=== PATIENT | female | born 1950 | race Caucasian/White ===

== ENCOUNTER 2017-04-18 19:33 | Emergency (ER) | payer MEDICARE ==
[~2017-04-18] VITALS: Ht 157.5 cm; Wt 95.1 kg
[~2017-04-18 19:33] MED LIST: GLUCTAB PO; HYDR-3111 PO; HYDR12.56 PO; HYDR12.57 PO; LEVO.025 PO; LORA0.5T PO; METF500T PO; VENL75TA PO; VERA80TA PO; ZOLP5TAB3 PO
[2017-04-18 19:42] VITALS: BP 137/80; PULSE 87; RESP 18; TEMP 98.1; O2SAT 97
[2017-04-18] MEDS ORDERED: LEVO25TA4 PO (19:53)
[2017-04-18] MEDS ORDERED: MELO15TA20 PO (20:12)
[2017-04-18] MEDS ORDERED: HYDR25TA5 PO (20:12)
[2017-04-18] MEDS ORDERED: EMPA1TAB3 PO (20:12)
[2017-04-18] MEDS ORDERED: ORPHENADRINE INJ 60 MG/2 ML AMP IM ONE (20:30)
[2017-04-18] MEDS ORDERED: KETOROLAC TROMETHAMINE 60 MG/2 ML (IM) VIAL IM ONE (20:30)
[2017-04-18] MEDS ORDERED: CYCL5TAB PO (20:39)
[2017-04-18] MEDS ORDERED: MEDI220T PO (20:39)
--- NOTE | 2017-04-18 20:40 | PD ---
HPI . Sciatica Chief Complaint: Musculoskeletal Complaint Time Seen by Provider: 20:00 Travel History International Travel<30 days: No Contact w/Intl Traveler<30days: No Traveled to known affect area: No History of Present Illness HPI 67-year-old female presents emergency department for evaluation of left hip pain that radiates down the left leg. Patient denies any injuries, traumas or fall to the area. Patient states the pain has been persistent for a week and half. Patient states that she was moving and lifting heavy boxes prior to the pain. Patient is full range of motion of the left hip. There is no obvious deformity, ecchymosis or erythema. Patient is ambulatory without a limp. Left leg is neurovascularly intact. Patient denies any fever, chills, malaise, shortness breath, abdominal pain, nausea, vomiting, diarrhea. Patient's major medical history is hypertension, diabetes and hypothyroidism. Patient denies any incontinence of urine or stool or saddle numbness. She denies any IV drug use. PFSH Past Medical History Anemia: Yes (DURING ) Arthritis: Yes (BILATERAL KNEES, HIPS, BACK AND HANDS) Asthma: Yes (PT STATES " SELDOM SYMPTOMATIC") Autoimmune Disease: No Anxiety: Yes Depression: Yes Cancer: No Cardiovascular Problems: No Diabetes: Yes Patient Takes Glucophage: No Diminished Hearing: No Gastrointestinal Disorders: Yes (VENTRAL HERNIA) Genitourinary: No Hepatitis: No Hiatal Hernia: No Hypertension: Yes Immune Disorder: No Medical other: Yes (HX ULCERS, MACULAR DEGENERATION) Musculoskeletal: Yes Neurologic: No Psychiatric: Yes Reproductive: Yes (POST MENOPAUSAL BLEEDING) Respiratory: Yes (SLEEP APNEA, PT DOES NOT USE CPAP MACHINE) Sleep Apnea: Yes (NO CPAP) Thyroid Disease: Yes Tetanus Vaccination: > 5 Years Influenza Vaccination: Yes Menopausal: Yes : 1 Para: 1 Ovarian Cysts: Yes Past Surgical History Abdominal Surgery: Yes (COLECTOMY, COLOSTOMY, REVERSAL OF COLOSTOMY 2002) Eye Surgery: Yes (right cataract) Joint Replacement: No Oral Surgery: Yes (TEETH AND GUM) Pacemaker: No Other Surgery: Yes (hernia) Social History Alcohol Use: Yes (socially) Tobacco Use: Yes (06/06 ppd) Substance Use: No Allergies-Medications (Allergen,Severity, Reaction): Coded Allergies: acetaminophen (Unverified Allergy, Severe, VOMITING , 04/18/17) ciprofloxacin (Unverified Allergy, Severe, VOMITING , 04/18/17) codeine (Unverified Allergy, Severe, VOMITTING ITCHING , 04/18/17) dextromethorphan (Unverified Allergy, Severe, 04/18/17) erythromycin base (Unverified Allergy, Severe, ITCHING , 04/18/17) morphine (Unverified Allergy, Severe, ITCHING , 04/18/17) oxycodone (Verified Allergy, Severe, VOMITING, 04/18/17) amlodipine (Unverified Allergy, Mild, NUMBNESS/TINGLING IN FACE, 04/18/17) Reported Meds & Prescriptions Reported Meds & Active Scripts Active Metformin (Metformin HCl) 500 Mg Tab 500 Mg PO BIDPC Lorazepam 0.5 Mg Tab 0.5 Mg PO DAILY PRN Zolpidem (Zolpidem Tartrate) 5 Mg Tab 5 Mg PO HS PRN Reported Jardiance (Empagliflozin) 25 Mg Tab 25 Mg PO DAILY Meloxicam 15 Mg Tab 15 Mg PO DAILY Hydrochlorothiazide 25 Mg Tab 25 Mg PO BID Levothyroxine (Levothyroxine Sodium) 25 Mcg Tab 25 Mcg PO DAILY Verapamil (Verapamil HCl) 80 Mg Tab 80 Mg PO DAILY Effexor (Venlafaxine HCl) 75 Mg Tab 150 Mg PO DAILY Review of Systems Except as stated in HPI: all other systems reviewed are Neg Musculoskeletal: Positive: Pain (left hip/left leg) Physical Exam Narrative GENERAL: Well-nourished, well-developed obese 67-year-old female patient in no acute distress. Nontoxic appearing. SKIN: Focused skin assessment warm/dry. HEAD: Normocephalic. Atraumatic. EYES: No scleral icterus. No injection or drainage. NECK: Supple, trachea midline. No JVD or lymphadenopathy. CARDIOVASCULAR: Regular rate and rhythm without murmurs, gallops, or rubs. Pedal pulses +2 bilaterally. RESPIRATORY: Breath sounds equal bilaterally. No accessory muscle use. GASTROINTESTINAL: Abdomen soft, non-tender, nondistended. MUSCULOSKELETAL: Full range of motion of the left lower extremity No obvious deformity, ecchymosis, erythema cyanosis, or edema. BACK: Nontender without obvious deformity. No CVA tenderness. Data Data Last Documented VS Vital Signs Date Time Temp Pulse Resp B/P (MAP) Pulse Ox O2 Delivery O2 Flow Rate FiO2 04/18/17 19:42 98.1 87 18 137/80 (99) 97 Orders Orders Ketorolac Inj (Toradol Inj) (04/18/17 20:30) Orphenadrine Inj (Norflex Inj) (04/18/17 20:30) MDM Medical Decision Making Medical Screen Exam Complete: Yes Emergency Medical Condition: Yes Differential Diagnosis Differential diagnoses include but not limited to sciatica, contusion, sprain, strain Narrative Course 67-year-old female who this emergency room for evaluation of left hip pain that radiates down the left leg 2 weeks. Left leg is neurovascularly intact. Patient's range of motion. There is no obvious deformity, ecchymosis, cyanosis , erythema, edema noted. Patient is ambulatory without a limp. Patient denies any fever, chills, malaise. Due to the lack of any trauma and duration of symptoms and physical presentation and clinical appearance radiological imaging was deferred at this time. Patient treated with an IM injection of Norflex and Toradol and discharged home with a prescription for Flexeril and naproxen and instructions to follow up with her primary care return to the emergency Department with any worsening condition. Diagnosis Primary Impression: Radiculopathy of leg Referrals: Primary Care Physician Patient Instructions: General Instructions, Sciatica (ED) Additional Instructions: Please return to emergency department if your symptoms return or worsen. Follow up with your primary care provider. Take medications as prescribed. Med/Other Pt SpecificInfo: Prescription(s) given Scripts Naproxen Sodium (Naproxen Sodium) 220 Mg Tab 440 MG PO BID Y for Pain Management, #15 TAB 0 Refills Prov: Tracy Gabriel 04/18/17 Cyclobenzaprine (Flexeril) 5 Mg Tab 5 MG PO TID for Muscle Spasm, #20 TAB 0 Refills Prov: Tracy Gabriel 04/18/17 Disposition: 01 DISCHARGE HOME Condition: Stable Tracy Gabriel Apr 18, 2017 20:40
[2017-05-02] MEDS ORDERED: HYDR25TA5 PO (15:09)
[2017-05-02] MEDS ORDERED: ZOLP5TAB3 PO (15:09)
[2017-05-02] MEDS ORDERED: METF500T PO (15:09)
[2017-05-02] MEDS ORDERED: PNEU13P IM ×2 (15:41→15:53)
[2017-05-02] MEDS ORDERED: FLU45SYR IM (15:41)
[2017-05-02] MEDS ORDERED: FLU60SYR19 IM (15:53)
== END 2017-04-18 20:56 | disposition home or self-care (01) ==
LOC: PHEFT 19:33
DX: M54.10 Radiculopathy, site unspecified (principal)
CPT/HCPCS: 96372; 99283; J1885; J2360

== ENCOUNTER 2017-10-13 23:35 | Emergency (ER) | payer MEDICARE ==
[~2017-10-13] VITALS: Ht 154.9 cm; Wt 93.0 kg
[~2017-10-13 23:35] MED LIST changes: +CLOTCRE TOPICAL; +EMPA1TAB3 PO; +FLU45SYR IM; -GLUCTAB PO; -HYDR-3111 PO; +HYDR-3516 PO; -HYDR12.56 PO; -HYDR12.57 PO; +HYDR25TA5 PO; -LEVO.025 PO; +LEVO25TA4 PO; +MEDI220T PO; +MELO15TA20 PO; +PNEU13P IM; +VENL150C39 PO; -VENL75TA PO; +VERA1TAB10 PO; -VERA80TA PO
[2017-10-13 23:38] VITALS: BP 170/80; PULSE 85; RESP 18; TEMP 97.8; O2SAT 99
[2017-10-14] MEDS ORDERED: SODIUM CHLOR 0.9% 1000 ML INJ 1,000 ML IV SCH (00:07)
[2017-10-14] MEDS ORDERED: ONDANSETRON ODT 4 MG TAB PO ONE (00:15)
[2017-10-14] MEDS ORDERED: SODIUM CHLORIDE 0.9% FLUSH 10 ML FLUSH IV FLUSH PRN (00:15)
[2017-10-14 00:32] VITALS: RESP 18; O2SAT 96
[2017-10-14 00:38] LABS: AUTOMATED NEUTROPHIL # 8.1 TH/MM3 (1.8-7.7); BASOPHIL # 0.1 TH/MM3 (0-0.2); BASOPHIL % 0.7 % (0.0-2.0); EOSINOPHIL # 0.1 TH/MM3 (0-0.4); EOSINOPHIL % 1.2 % (0.0-4.0); HEMATOCRIT 43.2 % (35.0-46.0); HEMOGLOBIN 14.8 GM/DL (11.6-15.3); LYMPH % 17.4 % (9.0-44.0); LYMPHOCYTE # 1.9 TH/MM3 (1.0-4.8); MEAN CELL VOLUME 93.3 FL (80.0-100.0); MEAN CORPUSCULAR HEMOGLOBIN 31.9 PG (27.0-34.0); MEAN CORPUSCULAR HGB CONC 34.2 % (32.0-36.0); MEAN PLATELET VOLUME 8.6 FL (7.0-11.0); MONO % 7.8 % (0.0-8.0); MONOCYTE # 0.9 TH/MM3 (0-0.9); NEUT % 72.9 % (16.0-70.0); PLATELET COUNT 286 TH/MM3 (150-450); RED BLOOD COUNT 4.64 MIL/MM3 (4.00-5.30); RED CELL DISTRIBUTION WIDTH 14.9 % (11.6-17.2); WHITE BLOOD COUNT 11.1 TH/MM3 (4.0-11.0)
[2017-10-14 00:50] LABS: ALT (GPT) 34 U/L (10-53); AST (GOT) 19 U/L (15-37); BICARBONATE 27.7 MEQ/L (21.0-32.0); BLOOD UREA NITROGEN 18 MG/DL (7-18); CALCIUM 9.4 MG/DL (8.5-10.1); CHLORIDE 102 MEQ/L (98-107); CREATININE 0.96 MG/DL (0.50-1.00); GLOMERULAR FILTRATION RATE 58 ML/MIN (>89); GLUCOSE,RANDOM 199 MG/DL (74-106); SODIUM (NA) 140 MEQ/L (136-145)
[2017-10-14 00:52] LABS: ALKALINE PHOSPHATASE 70 U/L (45-117); TOTAL BILIRUBIN ADULT 0.4 MG/DL (0.2-1.0)
[2017-10-14] MEDS ORDERED: ZOFR4TAB3 SL (00:56)
--- NOTE | 2017-10-14 00:56 | PD ---
HPI Chief Complaint: Abdominal Pain Time Seen by Provider: 00:07 Travel History International Travel<30 days: No Contact w/Intl Traveler<30days: No Traveled to known affect area: No History of Present Illness HPI 67-year-old complains of generalized abdominal pain though worse in the epigastric and right upper quadrant. A crampy quality is reported. It is luis felipe to a labor-like pain. Pain radiates to the back. Has a labor pain tight quality. It comes and goes. Nausea is reported. There is no fever vomiting or diarrhea. Pain started after eating [employer]. No urinary complaints PFSH Past Medical History Anemia: Yes (DURING ) Arthritis: Yes (BILATERAL KNEES, HIPS, BACK AND HANDS) Asthma: Yes (PT STATES " SELDOM SYMPTOMATIC") Autoimmune Disease: No Anxiety: Yes Depression: Yes Cancer: No Cardiovascular Problems: No Diabetes: Yes Patient Takes Glucophage: Yes (10/13/2017 1000) Diminished Hearing: No Gastrointestinal Disorders: Yes (VENTRAL HERNIA) Genitourinary: No Hepatitis: No Hiatal Hernia: No Hypertension: Yes Immune Disorder: No Medical other: Yes (HX ULCERS) Musculoskeletal: Yes Neurologic: No Psychiatric: Yes Reproductive: Yes (POST MENOPAUSAL BLEEDING) Respiratory: Yes (SLEEP APNEA, PT DOES NOT USE CPAP MACHINE) Sleep Apnea: Yes (NO CPAP) Thyroid Disease: Yes Tetanus Vaccination: Unknown Influenza Vaccination: No ?: Not Menopausal: Yes : 1 Para: 1 Ovarian Cysts: Yes Past Surgical History Abdominal Surgery: Yes (COLECTOMY, COLOSTOMY, REVERSAL OF COLOSTOMY 2002) Eye Surgery: Yes (right cataract) Hysterectomy: Yes Joint Replacement: No Oral Surgery: Yes (TEETH AND GUM) Pacemaker: No Other Surgery: Yes (hernia) Social History Alcohol Use: Yes (socially) Tobacco Use: Yes (06/06 ppd) Substance Use: No Allergies-Medications (Allergen,Severity, Reaction): Coded Allergies: ciprofloxacin (Unverified Allergy, Severe, VOMITING , 10/13/17) codeine (Unverified Allergy, Severe, VOMITTING ITCHING , 10/13/17) dextromethorphan (Unverified Allergy, Severe, 10/13/17) erythromycin base (Unverified Allergy, Severe, ITCHING , 10/13/17) morphine (Unverified Allergy, Severe, ITCHING , 10/13/17) oxycodone (Verified Allergy, Severe, VOMITING, 10/13/17) amlodipine (Unverified Allergy, Mild, NUMBNESS/TINGLING IN FACE, 10/13/17) Reported Meds & Prescriptions Reported Meds & Active Scripts Active Zofran Odt (Ondansetron Odt) 4 Mg Tab 4 Mg SL Q8HR PRN Levothyroxine (Levothyroxine Sodium) 25 Mcg Tab 25 Mcg PO DAILY Zolpidem (Zolpidem Tartrate) 5 Mg Tab 5 Mg PO HS PRN Hydrochlorothiazide 25 Mg Tab 25 Mg PO DAILY Venlafaxine ER 24 HR (Venlafaxine HCl) 150 Mg Cap 150 Mg PO DAILY PRN 30 Days Verapamil ER (Verapamil HCl) 180 Mg Tab 180 Mg PO DAILY Metformin (Metformin HCl) 500 Mg Tab 500 Mg PO BIDPC Lorazepam 0.5 Mg Tab 0.5 Mg PO DAILY PRN Reported Jardiance (Empagliflozin) 25 Mg Tab 25 Mg PO DAILY Meloxicam 15 Mg Tab 15 Mg PO DAILY Review of Systems Except as stated in HPI: all other systems reviewed are Neg General / Constitutional: No: Fever Physical Exam Narrative GENERAL: 67-year-old female pleasant well-nourished well-developed Vital Signs Date Time Temp Pulse Resp B/P (MAP) Pulse Ox O2 Delivery O2 Flow Rate FiO2 10/14/17 00:32 18 96 Room Air 10/13/17 23:38 97.8 85 18 170/80 (110) 99 SKIN: Warm and dry. HEAD: Atraumatic. Normocephalic. EYES: Pupils equal and round. No scleral icterus. No injection or drainage. ENT: No nasal bleeding or discharge. Mucous membranes pink and moist. NECK: Trachea midline. No JVD. CARDIOVASCULAR: Regular rate and rhythm. RESPIRATORY: No accessory muscle use. Clear to auscultation. Breath sounds equal bilaterally. GASTROINTESTINAL: Abdomen soft, non-tender, nondistended. Hepatic and splenic margins not palpable. MUSCULOSKELETAL: Extremities without clubbing, cyanosis, or edema. No obvious deformities. NEUROLOGICAL: Awake and alert. No obvious cranial nerve deficits. Motor grossly within normal limits. Five out of 5 muscle strength in the arms and legs. Normal speech. PSYCHIATRIC: Appropriate mood and affect; insight and judgment normal. Data Data Last Documented VS Vital Signs Date Time Temp Pulse Resp B/P (MAP) Pulse Ox O2 Delivery O2 Flow Rate FiO2 10/14/17 02:21 80 18 151/83 (105) 97 Room Air 10/13/17 23:38 97.8 Orders Orders Complete Blood Count With Diff (10/14/17 00:07) Comprehensive Metabolic Panel (10/14/17 00:07) Lipase (10/14/17 00:07) Lactic Acid (10/14/17 00:07) Urinalysis - C+S If Indicated (10/14/17 00:07) Ct Abd/Pel W Iv Contrast(Rout) (10/14/17 00:07) Iv Access Insert/Monitor (10/14/17 00:07) Ecg Monitoring (10/14/17 00:07) Oximetry (10/14/17 00:07) Sodium Chlor 0.9% 1000 Ml Inj (Ns 1000 M (10/14/17 00:07) Sodium Chloride 0.9% Flush (Ns Flush) (10/14/17 00:15) Ondansetron Odt (Zofran Odt) (10/14/17 00:15) Iohexol 350 Inj (Omnipaque 350 Inj) (10/14/17 01:48) Ed Discharge Order (10/14/17 03:58) Ed Discharge Order (10/14/17 03:58) Labs Laboratory Tests Test 10/14/17 00:13 10/14/17 01:45 White Blood Count 11.1 TH/MM3 Red Blood Count 4.64 MIL/MM3 Hemoglobin 14.8 GM/DL Hematocrit 43.2 % Mean Corpuscular Volume 93.3 FL Mean Corpuscular Hemoglobin 31.9 PG Mean Corpuscular Hemoglobin Concent 34.2 % Red Cell Distribution Width 14.9 % Platelet Count 286 TH/MM3 Mean Platelet Volume 8.6 FL Neutrophils (%) (Auto) 72.9 % Lymphocytes (%) (Auto) 17.4 % Monocytes (%) (Auto) 7.8 % Eosinophils (%) (Auto) 1.2 % Basophils (%) (Auto) 0.7 % Neutrophils # (Auto) 8.1 TH/MM3 Lymphocytes # (Auto) 1.9 TH/MM3 Monocytes # (Auto) 0.9 TH/MM3 Eosinophils # (Auto) 0.1 TH/MM3 Basophils # (Auto) 0.1 TH/MM3 CBC Comment DIFF FINAL Differential Comment Blood Urea Nitrogen 18 MG/DL Creatinine 0.96 MG/DL Random Glucose 199 MG/DL Total Protein 8.0 GM/DL Albumin 4.0 GM/DL Calcium Level 9.4 MG/DL Alkaline Phosphatase 70 U/L Aspartate Amino Transf (AST/SGOT) 19 U/L Alanine Aminotransferase (ALT/SGPT) 34 U/L Total Bilirubin 0.4 MG/DL Sodium Level 140 MEQ/L Potassium Level 3.2 MEQ/L Chloride Level 102 MEQ/L Carbon Dioxide Level 27.7 MEQ/L Anion Gap 10 MEQ/L Estimat Glomerular Filtration Rate 58 ML/MIN Lactic Acid Level 1.9 mmol/L Lipase 165 U/L Urine Color YELLOW Urine Turbidity CLEAR Urine pH 5.5 Urine Specific [place] 1.035 Urine Protein NEG mg/dL Urine Glucose (UA) 1000 mg/dL Urine Ketones NEG mg/dL Urine Occult Blood NEG Urine Nitrite NEG Urine Bilirubin NEG Urine Urobilinogen LESS THAN 2.0 MG/DL Urine Leukocyte Esterase NEG Urine RBC 1 /hpf Urine WBC 7 /hpf Urine Squamous Epithelial Cells 6 /hpf Urine Hyaline Casts 2 /lpf Urine Mucus FEW /lpf Microscopic Urinalysis Comment CULT NOT INDICATED MDM Medical Decision Making Medical Screen Exam Complete: Yes Emergency Medical Condition: Yes Medical Record Reviewed: Yes Differential Diagnosis Gastritis, pancreatitis, appendicitis, acute cholecystitis, ascending cholangitis, AAA, perforated viscous, mesenteric ischemia, hepatitis, cystitis, hydronephrosis/hydroureter/nephroureter calculus, mesenteric adenitis, biliary colic Narrative Course CBC & BMP Diagram 10/14/17 00:13 Total Protein 8.0, Albumin 4.0, Calcium Level 9.4, Alkaline Phosphatase 70, Aspartate Amino Transf (AST/SGOT) 19, Alanine Aminotransferase (ALT/SGPT) 34, Total Bilirubin 0.4 Lactic acid is 1.9 CT reveals partial bowel obstruction as a possibility diagnostically however certainly far from definitive based on imaging alone. The patient was kept here for about 5 hours. She drinks about 12 ounces of Gatorade and experienced no nausea or vomiting. Patient also reports improved abdominal pain. Positive flatus reported at approximately 3:30 AM. In this scenario patient will be discharged home with Zofran. Motrin as needed for pain control. Strict return precautions were discussed and patient verbalized understanding. Diagnosis Primary Impression: Abdominal pain Qualified Codes: R10.9 - Unspecified abdominal pain Additional Impressions: Vomiting Qualified Codes: R11.10 - Vomiting, unspecified Hypokalemia Referrals: Primary Care Physician call for appointment Med/Other Pt SpecificInfo: Prescription(s) given Scripts Ondansetron Odt (Zofran Odt) 4 Mg Tab 4 MG SL Q8HR Y for Nausea/Vomiting, #10 TAB 0 Refills Prov: Jered Freeman MD 10/14/17 Disposition: 01 DISCHARGE HOME Condition: Stable Jered Freeman MD October 14, 2017 00:56
[2017-10-14 01:07] VITALS: BP 155/96; PULSE 79; RESP 18; O2SAT 98
[2017-10-14] MEDS ORDERED: IOHEXOL 350 MG/ML 10 ML VIAL (for RAD DIAG) IVCONTRAST ONE (01:48)
[2017-10-14 02:02] LABS: BILIRUBIN, URINE NEG (NEG); BLOOD, URINE NEG (NEG); GLUCOSE,URINE 1000 mg/dL (NEG); HYALINE CAST, URINE 2 /lpf (RARE); KETONE, URINE NEG (NEG); MUCUS URINE FEW /lpf (OCC); NITRITE,URINE NEG (NEG); PH, URINE 5.5 (5.0-8.5); SQUAMOUS EPITHELIAL CELL URINE 6 /hpf (0-5); URINE COLOR YELLOW (YELLW/STRAW); URINE LEUKOCYTE ESTERASE NEG (NEG)
--- NOTE | 2017-10-14 02:07 | RADRPT ---
EXAM DATE/TIME: 10/14/2017 01:49 [facility] COMPARISON: CT ABDOMEN & PELVIS W CONTRAST, November 03, 2013, 14:43. INDICATIONS : Upper abdominal pain. IV CONTRAST: 97 cc Omnipaque 350 (iohexol) IV ORAL CONTRAST: No oral contrast ingested. RADIATION DOSE: 21.28 CTDIvol (mGy) ; Patient body habitus MEDICAL HISTORY : Hypertension. Diabetes mellitus type 2. Asthma, Ventral hernia SURGICAL HISTORY : Colon resection. Hysterectomy. ENCOUNTER: Initial ACUITY: 1 day PAIN SCALE: 6/10 LOCATION: abdomen TECHNIQUE: Volumetric scanning of the abdomen and pelvis was performed. Using automated exposure control and ad justment of the mA and/or kV according to patient size, radiation dose was kept as low as reasonably achievable to obtain optimal diagnostic quality images. DICOM format image data is available electro nically for review and comparison. FINDINGS: LOWER LUNGS: The visualized lower lungs are clear. LIVER: Homogeneous density without lesion. There is a single small calcified gallstone again noted. There is no gallbladder wall thickening or inflammatory change. The there is mild hepatic steatosis. SPLEEN: Normal size without lesion. PANCREAS: Within normal limits. KIDNEYS: Normal in size and shape. There is no mass, stone or hydronephrosis. ADRENAL GLANDS: Within normal limits. VASCULAR: There is no aortic aneurysm. BOWEL/MESENTERY: No oral contrast was given limiting sensitivity. There are several loops of borderline prominent smal l bowel in the mid and left central abdomen several small air-fluid levels. The mid and distal small bowel are decompressed. Stomach is unremarkable. There is no free air or fluid. Surgical clips are pr esent in the pelvis. ABDOMINAL WALL: Status post interval abdominal wall hernia repair with mild scarring. There is a single small loop of bowel extends past the anterior abdominal wall musculature RETROPERITONEUM: There is no lymphadenopathy. BLADDER: No wall thickening or mass. REPRODUCTIVE: Within normal limits. INGUINAL: There is no lymphadenopathy or hernia. MUSCULOSKELETAL: Within normal limits for patient age. CONCLUSION: 1. Status post interval anterior abdominal wall hernia repair. There is a single loop of small bowel which extends into the subcutaneous fat past the wall consistent with a residual or recurrent hernia. 2. There are several loops of borderline dilated air-containing small bowel in left mid abdomen with several small air-fluid levels. This is mildly improved compared to the prior study. This could repre sent an ileus versus early or partial small bowel obstruction. Lalo Cardozo MD on October 14, 2017 at 1:58 Board Certified Radiologist. This report was verified electronically.
[2017-10-14 02:21] VITALS: BP 151/83; PULSE 80; RESP 18; O2SAT 97
== END 2017-10-14 04:21 | disposition home or self-care (01) ==
LOC: NEPE 23:35
DX: R10.13 Epigastric pain (principal); R11.10 Vomiting, unspecified; E87.6 Hypokalemia; J45.909 Unspecified asthma, uncomplicated; E11.9 Type 2 diabetes mellitus without complications; I10 Essential (primary) hypertension; Z72.0 Tobacco use
CPT/HCPCS: 74177; 80053; 81001; 83605; 83690; 85025; 96360; 99285; J7030; Q9967